=== PATIENT | male | born 1970 | race Two or more races ===

== ENCOUNTER 2017-04-15 17:43 | Inpatient (IN) | payer SELFPAY ==
[~2017-04-15] VITALS: Ht 165.1 cm; Wt 78.9 kg
[2017-04-15 17:55] VITALS: BP 132/82
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
[2017-04-15 18:37] LABS: BASOPHILS % (AUTO) 1.5 % (0.0-2.0); EOSINOPHILS % (AUTO) 7.8 % (0.0-3.0); LYMPHOCYTES % (AUTO) 14.9 % (20.0-45.0); MEAN CORPUSCULAR HEMOGLOBIN 32.5 PG (27.0-31.0); MEAN CORPUSCULAR HGB CONC 35.7 G/DL (32.0-36.0); MEAN CORPUSCULAR VOLUME 91 FL (80-99); MEAN PLATELET VOLUME 5.5 FL (6.5-10.1); MONOCYTES % (AUTO) 6.6 % (1.0-10.0); NEUTROPHILS % (AUTO) 69.2 % (45.0-75.0); PLATELET COUNT 199 K/UL (150-450); RED BLOOD COUNT 3.34 M/UL (4.70-6.10); RED CELL DISTRIBUTION WIDTH 14.1 % (11.6-14.8); WHITE BLOOD COUNT 7.4 K/UL (4.8-10.8)
[2017-04-15 18:53] LABS: TROPONIN I < 0.30 ng/mL (<=0.30)
[2017-04-15 18:56] LABS: ALBUMIN/GLOBULIN RATIO 1.3 (1.0-2.7); CREATININE 18.7 mg/dL (0.7-1.2); GLOMERULAR FILTRATION RATE 2.7 mL/min (>60); POTASSIUM 4.9 mEQ/L (3.4-4.9)
[2017-04-15 19:07] LABS: CKMB 7.1 ng/mL (< 6.7)
[2017-04-15 19:25] VITALS: BP 151/77
[2017-04-15] MEDS ORDERED: RISPERDAL2 MG ORAL (19:40)
[2017-04-15] MEDS ORDERED: Milk of Magnesia 30ml Ud ORAL PRN (21:45)
[2017-04-15] MEDS ORDERED: Ipratropium 0.02% Inh Soln 2.5ml UD HHN PRN (21:45)
[2017-04-15 21:56] VITALS: BP 128/68
[2017-04-15 23:13] VITALS: BP 128/68
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
[2017-04-16] MEDS: Docusate 100mg cap ORAL SCH ×2 (09:00→22:09)
[2017-04-16] MEDS: Heparin 5000 units/ml inj SUBQ SCH ×2 (09:00→22:10)
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
[2017-04-16 12:00] VITALS: BP 116/63
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
[2017-04-16 20:00] VITALS: BP 132/72
[2017-04-17] VITALS: BP 126/54
[2017-04-17 04:00] VITALS: BP 131/71
--- NOTE | 2017-04-17 07:28 | Cardiology Report ---
APPROVED REPORT EKG Measurement Heart [id number] Normal sinus rhythm Left axis deviation Prolonged QT Abnormal ECG
[2017-04-17 07:41] VITALS: BP 107/58
--- NOTE | 2017-04-17 07:43 | Cardiology Report ---
APPROVED REPORT EXAM: Two-dimensional and M-mode echocardiogram with Doppler and color Doppler. INDICATION CHF M-Mode DIMENSIONS IVSd1.3 (0.7-1.1cm)Left Atrium (MM)3.8 (1.6-4.0cm) LVDd4.8 (3.5-5.6cm)Aortic Root3.8 (2.0-3.7cm) PWd1.3 (0.7-1.1cm)Aortic Cusp Exc.1.7 (1.5-2.0cm) LVDs3.3 (2.5-4.0cm) PWs1.4 cm Normal left ventricular chamber size, systolic function and wall motion. Left ventricular ejection fraction estimated to be 55-60 %. Mild left ventricular hypertrophy. Anterior Echo-free space, may be due to pericardial fat or effusion. Mild left atrial enlargement. Right cardiac chamber sizes are within normal limits. Focal aortic valve sclerosis with adequate cusp excursion. Thickened mitral valve leaflets with normal excursion. Mitral annulus and aortic root calcification. Pulmonic valve not well visualized. Normal tricuspid valve structure. IVC measured 2.4 cm and slightly collapsing with respiration. A color flow and spectral Doppler study was performed and revealed: Trace mitral regurgitation. Mitral inflow indicates normal left ventricular diastolic function. Trace tricuspid regurgitation. Tricuspid systolic velocities suggests peak right ventricular systolic pressure of 24 mmHg.
[2017-04-17 08:10] LABS: BASOPHILS % (AUTO) 1.8 % (0.0-2.0); EOSINOPHILS % (AUTO) 9.5 % (0.0-3.0); LYMPHOCYTES % (AUTO) 30.1 % (20.0-45.0); MEAN CORPUSCULAR HEMOGLOBIN 29.8 PG (27.0-31.0); MEAN CORPUSCULAR HGB CONC 33.1 G/DL (32.0-36.0); MEAN CORPUSCULAR VOLUME 90 FL (80-99); MEAN PLATELET VOLUME 6.5 FL (6.5-10.1); MONOCYTES % (AUTO) 9.8 % (1.0-10.0); NEUTROPHILS % (AUTO) 48.8 % (45.0-75.0); PLATELET COUNT 214 K/UL (150-450); RED BLOOD COUNT 3.58 M/UL (4.70-6.10); RED CELL DISTRIBUTION WIDTH 13.9 % (11.6-14.8); WHITE BLOOD COUNT 5.5 K/UL (4.8-10.8)
[2017-04-17] MEDS: Docusate 100mg cap ORAL SCH ×2 (08:17→21:59)
[2017-04-17] MEDS: Heparin 5000 units/ml inj SUBQ SCH ×2 (08:18→22:00)
[2017-04-17 08:30] LABS: CALCIUM 6.5 mg/dL (8.6-10.2); CREATININE 12.6 mg/dL (0.7-1.2); GLOMERULAR FILTRATION RATE 4.3 mL/min (>60); POTASSIUM 3.5 mEQ/L (3.4-4.9)
[2017-04-17 11:20] VITALS: BP 134/73
--- NOTE | 2017-04-17 12:18 | Nephrology Progress Note ---
Assessment/Plan Plan ESRD - pt lost his MediCal - Senior Supplier Quality Engineer aware + needs to reapply. Cannot DC patient home until MediCal in place. Poor HD access - Vascular surgery to advise. HD today pending. Subjective Subjective No new c/o. Objective Objective Last 24 Hour Vital Signs Date Time Temp Pulse Resp B/P Pulse Ox O2 Delivery O2 Flow Rate FiO2 04/17/17 11:20 97.5 86 18 134/73 97 Room Air 04/17/17 08:13 91 18 Room Air 21 04/17/17 08:00 85 04/17/17 07:41 97.7 85 18 107/58 97 Room Air 04/17/17 04:00 91 04/17/17 04:00 98.2 93 20 131/71 96 Room Air 04/17/17 00:00 81 04/17/17 00:00 97.7 86 20 126/54 97 Room Air 04/16/17 20:00 88 04/16/17 20:00 97.7 84 20 132/72 97 Room Air Intake and Output 04/16/17 04/17/17 19:00 07:00 Intake Total 120 ml 620 ml Output Total 300 ml 2000 ml Balance -180 ml -1380 ml Intake Oral 120 ml 120 ml Hemodialysis 500 ml Output Urine Total 300 ml Hemodialysis UF 2000 ml # Voids 3 # Bowel Movements 2 Laboratory Tests 04/17/17 07:15: White Blood Count 5.5, Red Blood Count 3.58L, Hemoglobin 10.7L, Hematocrit 32.3L , Mean Corpuscular Volume 90, Mean Corpuscular Hemoglobin 29.8, Mean Corpuscular Hemoglobin Concent 33.1, Red Cell Distribution Width 13.9, Platelet Count 214, Mean Platelet Volume 6.5, Neutrophils (%) (Auto) 48.8, Lymphocytes (% ) (Auto) 30.1, Monocytes (%) (Auto) 9.8, Eosinophils (%) (Auto) 9.5H, Basophils (%) (Auto) 1.8, Sodium Level 136, Potassium Level 3.5, Chloride Level 97L, Carbon Dioxide Level 14L, Anion Gap 25H, Blood Urea Nitrogen 58H, Creatinine 12.6H, Estimat Glomerular Filtration Rate 4.3, Glucose Level 98, Calcium Level 6.5L Height (Feet): 5 Height (Inches): 5.00 Weight (Pounds): 180 Objective CV -RR Lungs CTA. Abd SNT. BS + E No CCE JOCELYNE KILGORE Apr 17, 2017 12:18
--- NOTE | 2017-04-17 15:06 | General Progress Note ---
Assessment/Plan Status: not improved Assessment/Plan schizophrenia -risperdal 2mg po qhs Subjective Neurologic/Psychiatric: Reports: anxiety, emotional problems Allergies: Coded Allergies: No Known Allergies (Unverified , 04/15/17) Subjective the pt cont to be delusion and has hallucinations. calm and cooperative. Objective Last 24 Hour Vital Signs Date Time Temp Pulse Resp B/P Pulse Ox O2 Delivery O2 Flow Rate FiO2 04/17/17 11:20 97.5 86 18 134/73 97 Room Air 04/17/17 08:13 91 18 Room Air 21 04/17/17 08:00 85 04/17/17 07:41 97.7 85 18 107/58 97 Room Air 04/17/17 04:00 91 04/17/17 04:00 98.2 93 20 131/71 96 Room Air 04/17/17 00:00 81 04/17/17 00:00 97.7 86 20 126/54 97 Room Air 04/16/17 20:00 88 04/16/17 20:00 97.7 84 20 132/72 97 Room Air Intake and Output 04/16/17 04/17/17 19:00 07:00 Intake Total 120 ml 620 ml Output Total 300 ml 2000 ml Balance -180 ml -1380 ml Intake Oral 120 ml 120 ml Hemodialysis 500 ml Output Urine Total 300 ml Hemodialysis UF 2000 ml # Voids 3 # Bowel Movements 2 Laboratory Tests 04/17/17 07:15: White Blood Count 5.5, Red Blood Count 3.58L, Hemoglobin 10.7L, Hematocrit 32.3L , Mean Corpuscular Volume 90, Mean Corpuscular Hemoglobin 29.8, Mean Corpuscular Hemoglobin Concent 33.1, Red Cell Distribution Width 13.9, Platelet Count 214, Mean Platelet Volume 6.5, Neutrophils (%) (Auto) 48.8, Lymphocytes (% ) (Auto) 30.1, Monocytes (%) (Auto) 9.8, Eosinophils (%) (Auto) 9.5H, Basophils (%) (Auto) 1.8, Sodium Level 136, Potassium Level 3.5, Chloride Level 97L, Carbon Dioxide Level 14L, Anion Gap 25H, Blood Urea Nitrogen 58H, Creatinine 12.6H, Estimat Glomerular Filtration Rate 4.3, Glucose Level 98, Calcium Level 6.5L Height (Feet): 5 Height (Inches): 5.00 Weight (Pounds): 180 General Appearance: alert, mild distress, obese Neurologic: alert, oriented x 3, responsive, depressed affect Jeffery Morel M.D. Apr 17, 2017 15:06
[2017-04-17 15:30] VITALS: BP 144/77
[2017-04-17 20:00] VITALS: BP 132/72
[2017-04-18] VITALS: BP 128/62
[2017-04-18 04:00] VITALS: BP 122/63
[2017-04-18 07:54] VITALS: BP 116/65
[2017-04-18] MEDS: Docusate 100mg cap ORAL SCH (08:35)
[2017-04-18] MEDS: Heparin 5000 units/ml inj SUBQ SCH (08:36)
[2017-04-18 11:59] VITALS: BP 130/75
--- NOTE | 2017-04-18 12:31 | Nephrology Progress Note ---
Assessment/Plan Plan ESRD - pt lost his MediCal - Director Of Cardiac Rehabilitation aware + needs to reapply. Cannot DC patient home until MediCal in place. Poor HD access - Vascular surgery to advise. HD done yesterday. Per Director Of Cardiac Rehabilitation she spoke to his dialysis and they are willing to take the patient. Patient is psychotic. Subjective Subjective No new c/o. Objective Objective Last 24 Hour Vital Signs Date Time Temp Pulse Resp B/P Pulse Ox O2 Delivery O2 Flow Rate FiO2 04/18/17 11:59 97.9 91 18 130/75 96 Room Air 04/18/17 08:00 91 04/18/17 07:54 98.1 94 18 116/65 96 Room Air 04/18/17 07:52 88 18 Room Air 21 04/18/17 04:00 95 04/18/17 04:00 98.2 95 20 122/63 95 Room Air 04/18/17 00:00 97 04/18/17 00:00 98.0 108 21 128/62 98 Room Air 04/17/17 20:00 102 20 132/72 97 Room Air 04/17/17 20:00 100 04/17/17 19:57 95 18 Room Air 21 04/17/17 15:30 98.2 84 18 144/77 99 Room Air Intake and Output 04/17/17 04/18/17 19:00 07:00 Intake Total 360 ml 500 ml Output Total 2500 ml Balance 360 ml -2000 ml Intake Oral 360 ml 0 ml Hemodialysis 500 ml Hemodialysis UF 2500 ml # Voids 1 Laboratory Tests 04/18/17 07:25: Hepatitis A IgM Antibody [Pending], Hepatitis B Surface Antigen [Pending], Hepatitis B Core IgM Antibody [Pending], Hepatitis C Antibody [Pending] Height (Feet): 5 Height (Inches): 5.00 Weight (Pounds): 174 Objective CV -RR Lungs CTA. Abd SNT. BS + E No JOCELYNE NORWOOD Apr 18, 2017 12:31
--- NOTE | 2017-04-18 12:46 | Nephrology Progress Note ---
Assessment/Plan Plan ESRD - pt lost his MediCal - Agency Sales Director aware + needs to reapply. Cannot DC patient home until MediCal in place. Poor HD access - Vascular surgery to advise. HD done yesterday. Per Agency Sales Director she spoke to his dialysis and they are willing to take the patient. Patient is psychotic. No discharge planning made. I had to call and talk to the HD unit boil off worker to Guarantee that someone will be looking for thiss psychotic patient to take meds or show up to dialysis. Agency Sales Director doesnt show any interest in all of this..... left in the middle of my conversation.... DC Home Subjective Subjective No new c/o. Objective Objective Last 24 Hour Vital Signs Date Time Temp Pulse Resp B/P Pulse Ox O2 Delivery O2 Flow Rate FiO2 04/18/17 11:59 97.9 91 18 130/75 96 Room Air 04/18/17 08:00 91 04/18/17 07:54 98.1 94 18 116/65 96 Room Air 04/18/17 07:52 88 18 Room Air 21 04/18/17 04:00 95 04/18/17 04:00 98.2 95 20 122/63 95 Room Air 04/18/17 00:00 97 04/18/17 00:00 98.0 108 21 128/62 98 Room Air 04/17/17 20:00 102 20 132/72 97 Room Air 04/17/17 20:00 100 04/17/17 19:57 95 18 Room Air 21 04/17/17 15:30 98.2 84 18 144/77 99 Room Air Intake and Output 04/17/17 04/18/17 19:00 07:00 Intake Total 360 ml 500 ml Output Total 2500 ml Balance 360 ml -2000 ml Intake Oral 360 ml 0 ml Hemodialysis 500 ml Hemodialysis UF 2500 ml # Voids 1 Laboratory Tests 04/18/17 07:25: Hepatitis A IgM Antibody [Pending], Hepatitis B Surface Antigen [Pending], Hepatitis B Core IgM Antibody [Pending], Hepatitis C Antibody [Pending] Height (Feet): 5 Height (Inches): 5.00 Weight (Pounds): 174 Objective CV -RR Lungs CTA. Abd SNT. BS + E No CCE JOCELYNE KILGORE Apr 18, 2017 12:45
[2017-04-18] MEDS ORDERED: IPRATROPIU0.2 MG/1 M HHN (12:48)
[2017-04-18] MEDS ORDERED: RISPERDAL2 MG ORAL (12:48)
[2017-04-18] MEDS ORDERED: COLACE100 MG ORAL (12:48)
[2017-04-18] MEDS ORDERED: NS 275ml ONE (15:38)
[2017-04-18] MEDS ORDERED: Tubing IV Secondary IV ONE (15:38)
--- NOTE | 2017-04-19 13:05 | Discharge Summary ---
Discharge Summary Hospital Course Date of Admission Apr 15, 2017 at 21:30 Date of Discharge Apr 18, 2017 at 15:39 Admitting Diagnosis renal failure/Hemodialysis ROMAN Lin is a 47 year old male who was admitted on Apr 15, 2017 at 21:30 for Renal Failure,Hemodialysis Hospital Course [id number] Discharge Discharge Disposition Patient was discharged to Home (01) Discharge Diagnoses: Tamiko White NP Apr 19, 2017 13:05
--- NOTE | 2017-04-20 01:15 | Progress Note ---
DATE: 04/18/2017 SUBJECTIVE: The patient is calm, cooperative . There is no insight and judgment into his mental condition. He is alert and oriented to self and he is during the evaluation. He still delusional and has persecutory delusions. MENTAL STATUS EXAMINATION: The patient is alert and oriented to person, place and time. Mood is anxious. Affect is constricted congruent with mood. Thought process is concrete. Thought content, there is no suicidal or homicidal ideation. ASSESSMENT: Schizophrenia. PLAN: 1. The patient will be continued on . 2. Provide the patient with supportive and reality orientation. Jeffery Morel M.D. DR: SHANNON JOB#: [id number] CC:
--- NOTE | 2017-04-20 05:45 | Discharge Summary 2 SIG ---
DATE OF ADMISSION: 04/15/2017 DATE OF DISCHARGE: 04/18/2017 MGMT SPECIALIST: Jeffery Morel M.D. BRIEF HOSPITAL COURSE: The patient is an unfortunate 47-year-old male, who has been on dialysis for six months. The patient needs about a week of dialysis because he left home and due to that had no transportation to the dialysis. He came to ED complaining of worms crawling in and out of his hemodialysis access. On evaluation at ED, psych consult was done. The patient admitted that he has been using crystal methamphetamine. He had been noncompliant and apparently has seen a psychiatrist in the past and he refused to take medications. He was diagnosed to have paranoid schizophrenia and was given risperidone 2 mg x1. He was also advised to follow up with his psychiatrist. The patient was admitted for inpatient hemodialysis. He claimed to have lost his MediCal, need to re-apply and need to have arrangements made prior to discharging patient to ensure the patient will get hemodialysis as outpatient. Referral was made to dialysis center and the patient was discharged home. FINAL DIAGNOSES: 1. End-stage renal disease, on hemodialysis. 2. Paranoid schizophrenia. Nelson Fuentes M.D. I have been assigned to dictate discharge summary on this account and I was not involved in the patient's management. Tamiko White N.P. DR: MIRTHA JOB#: [id number] CC: KIRA
== END 2017-04-18 15:39 | disposition home or self-care (01) | DRG 699 ==
LOC: EDBD 17:43 → EMR 18:15 → EDBEDREQ 21:06 → 2E 21:30
PROC: 5A1D60Z (ICD-10-PCS; principal; 2017-04-15)
DX: E11.22 Type 2 diabetes mellitus with diabetic chronic kidney disease (principal); F20.0 Paranoid schizophrenia; N18.6 End stage renal disease; Z99.2 Dependence on renal dialysis; Z91.15 Patient's noncompliance with renal dialysis; Z91.19 Patient's noncompliance with other medical treatment and regimen; F29 Unspecified psychosis not due to a substance or known physiological condition; F15.10 Other stimulant abuse, uncomplicated
CPT/HCPCS: 36415; 71010; 80048; 80053; 80300; 82550; 82553; 82962; 84484; 85025; 86705; 86709; 86803; 87081; 87340; 93005; 93306; 93930; 93970; 94664